=== PATIENT | male | born 1940 | race African-American/Black ===

== ENCOUNTER 2021-04-22 17:06 | Inpatient (IN) | payer MEDICARE, OTHER ==
[~2021-04-22] VITALS: Ht 180.3 cm; Wt 142.4 kg
[~2021-04-22 17:06] MED LIST: ATORVASTATIN CA40 MG PO; FLOMAX0.4 MG PO; FUROSEMIDE40 MG PO; GABAPENTIN600 MG PO; GLIPIZIDE ER10 MG PO; HYDRALAZINE HC100 MG PO; JANUMET 50-1,01 EACH PO; LISINOPRIL20 MG PO; METOLAZONE5 MG PO; METOPROLOL SUC100 MG PO; OMEPRAZOLE20 MG PO
[2021-04-22] MEDS ORDERED: SODIUM CHLORIDE 0.9% 250ML 250 ML IV ONE ×2 (17:45→21:15)
[2021-04-22 17:58] LABS: BASOPHILS # (AUTO) 0.1 (0.0-0.1); BASOPHILS % 0.3 % (0.0-1.0); EOSINOPHILS # (AUTO) 0.1 (0.0-0.4); EOSINOPHILS % 0.5 % (0.0-6.0); LYMPHOCYTES # (AUTO) 3.9 (1.0-3.2); LYMPHOCYTES % 17.3 % (18.0-39.1); MEAN CORPUSCULAR HEMOGLOBIN 31.5 pg (28-32); MEAN CORPUSCULAR HGB CONC 30.2 g/dL (31-35); MEAN CORPUSCULAR VOLUME 104.2 fL (81-99); MONOCYTES # (AUTO) 1.7 (0.2-0.8); MONOCYTES % 7.5 % (4.4-11.3); NEUTROPHILS # (AUTO) 16.4 (2.1-6.9); PLATELET COUNT 191 x10e3/uL (140-360); RED BLOOD COUNT 1.65 x10e6/uL (4.3-5.7); RED CELL DISTRIBUTION WIDTH 15.5 % (11.7-14.4)
[2021-04-22 18:00] LABS: HEMATOCRIT 17.2 % (38.2-49.6); HEMOGLOBIN 5.2 g/dL (14.0-18.0)
[2021-04-22] MEDS ORDERED: SODIUM CHLORIDE 0.9% 250ML 250 ML ONE (18:00)
[2021-04-22 18:11] LABS: INR 1.18; PROTHROMBIN TIME 15.8 seconds (11.9-14.5)
[2021-04-22 18:16] LABS: ALBUMIN 2.2 g/dL (3.5-5.0); ALBUMIN/GLOBULIN RATIO 0.8 (0.8-2.0); ANION GAP 15.7 mmol/L (8-16); CREATININE, SERUM 1.9 mg/dL (0.72-1.25)
[2021-04-22 18:21] LABS: POTASSIUM 5.7 mmol/L (3.5-5.1)
[2021-04-22] MEDS ORDERED: CEFEPIME 1 GM in SODIUM CHLORIDE 0.9% 50ML 50 ML IV SCH (18:30)
[2021-04-22] MEDS ORDERED: ALBUTEROL SULF 0.083% NEB SOLN 3 ML NEB NEB STA (19:40)
[2021-04-22] MEDS ORDERED: IOPAMIDOL 370 MG/ML 200 ML INFUS..BTL INJ ONE (19:45)
[2021-04-22] MEDS ORDERED: SODIUM CHLORIDE 0.9% 100 ML ONE (19:45)
[2021-04-22] MEDS ORDERED: INSULIN REGULAR, HUMAN 100 UNIT/1 ML IV ONE (19:45)
[2021-04-22 20:29] LABS: ANION GAP 14.5 mmol/L (8-16); CALCIUM 7.5 mg/dL (8.4-10.2); CREATININE, SERUM 1.81 mg/dL (0.72-1.25); POTASSIUM 5.5 mmol/L (3.5-5.1)
[2021-04-22] MEDS ORDERED: ALBUTEROL SULFATE HFA 8GM INHALATION AEROSOL INH ONE (20:45)
[2021-04-22 21:02] LABS: BASOPHILS % 0.2 % (0.0-1.0); EOSINOPHILS # (AUTO) 0.1 (0.0-0.4); EOSINOPHILS % 0.5 % (0.0-6.0); LYMPHOCYTES # (AUTO) 2.2 (1.0-3.2); LYMPHOCYTES % 12.4 % (18.0-39.1); MEAN CORPUSCULAR HEMOGLOBIN 30.4 pg (28-32); MEAN CORPUSCULAR HGB CONC 31.4 g/dL (31-35); MEAN CORPUSCULAR VOLUME 96.9 fL (81-99); MONOCYTES # (AUTO) 1.4 (0.2-0.8); MONOCYTES % 7.9 % (4.4-11.3); NEUTROPHILS # (AUTO) 13.9 (2.1-6.9); NEUTROPHILS % 77.3 % (38.7-80.0); PLATELET COUNT 129 x10e3/uL (140-360); RED BLOOD COUNT 2.27 x10e6/uL (4.3-5.7); RED CELL DISTRIBUTION WIDTH 15.5 % (11.7-14.4)
[2021-04-22 21:05] LABS: HEMOGLOBIN 6.9 g/dL (14.0-18.0)
[2021-04-22] MEDS ORDERED: SOD POLYSTYRENE SULFONATE SUSP 15 GM/60 ML BTL PO ONE (23:00)
[2021-04-22] MEDS ORDERED: ONDANSETRON HCL INJ 2MG/ML 2ML 2 MG/ML VIAL IV PRN (23:15)
[2021-04-22] MEDS ORDERED: MELATONIN 3 MG TAB PO PRN (23:15)
[2021-04-22] MEDS ORDERED: HYDRALAZINE HCL 20 MG/ML VIAL IV PRN (23:15)
[2021-04-22] MEDS ORDERED: DEXTROSE 50% SYRINGE 50 ML IV PRN (23:15)
[2021-04-22] MEDS ORDERED: ACETAMINOPHEN 325 MG TAB PEG PRN (23:15)
[2021-04-22 23:17] LABS: FERRITIN 68.49 ng/mL (21.81-274.66)
[2021-04-23] MEDS ORDERED: SODIUM CHLORIDE 0.9% 250ML 250 ML ONE ×2 (01:14→01:51)
[2021-04-23] MEDS ORDERED: OCTREOTIDE ACETATE 1 ML ONE (01:51)
[2021-04-23] MEDS: OCTREOTIDE ACETATE 500 MCG in SODIUM CHLORIDE 0.9% 250ML 249 ML IV SCH ×3 (03:40→20:53)
[2021-04-23 05:51] LABS: BASOPHILS # (AUTO) 0.1 (0.0-0.1); BASOPHILS % 0.5 % (0.0-1.0); EOSINOPHILS # (AUTO) 0.2 (0.0-0.4); EOSINOPHILS % 1.1 % (0.0-6.0); HEMATOCRIT 30.5 % (38.2-49.6); HEMOGLOBIN 9.9 g/dL (14.0-18.0); LYMPHOCYTES # (AUTO) 3.2 (1.0-3.2); LYMPHOCYTES % 15.3 % (18.0-39.1); MEAN CORPUSCULAR HEMOGLOBIN 30.7 pg (28-32); MEAN CORPUSCULAR HGB CONC 32.5 g/dL (31-35); MEAN CORPUSCULAR VOLUME 94.7 fL (81-99); MONOCYTES # (AUTO) 1.9 (0.2-0.8); MONOCYTES % 9.1 % (4.4-11.3); NEUTROPHILS # (AUTO) 15.1 (2.1-6.9); NEUTROPHILS % 72.3 % (38.7-80.0); PLATELET COUNT 119 x10e3/uL (140-360); RED BLOOD COUNT 3.22 x10e6/uL (4.3-5.7)
[2021-04-23 06:01] LABS: ANION GAP 15.8 mmol/L (8-16); CALCIUM 8.1 mg/dL (8.4-10.2); CREATININE, SERUM 1.76 mg/dL (0.72-1.25); POTASSIUM 5.8 mmol/L (3.5-5.1)
[2021-04-23] MEDS: INSULIN REGULAR, HUMAN 100 UNIT/1 ML SQ SCH ×4 (07:30→22:03)
[2021-04-23] MEDS ORDERED: SODIUM CHLORIDE 0.9% 1000ML 1,000 ML IV STA ×3 (07:43→07:45)
[2021-04-23] MEDS ORDERED: SODIUM CHLORIDE 0.9% 250ML 250 ML IV ONE (07:45)
[2021-04-23] MEDS ORDERED: SODIUM CHLORIDE 0.9% 1000ML 1,000 ML ONE ×2 (07:54→08:33)
[2021-04-23] MEDS: MULTIVITAMINS/MINERALS TAB PO SCH (08:28)
[2021-04-23] MEDS: TAMSULOSIN HCL 0.4 MG CAP PO SCH (08:28)
[2021-04-23] MEDS ORDERED: SODIUM CHLORIDE 0.9% 1000ML 1,000 ML IV ONE (08:45)
[2021-04-23] MEDS ORDERED: GABAPENTIN 400 MG CAP PO SCH (09:00)
[2021-04-23] MEDS: IRON SUCROSE 100 MG in SODIUM CHLORIDE 0.9% 100 ML 100 ML IV SCH (09:24)
[2021-04-23] MEDS: CEFEPIME 1 GM in SODIUM CHLORIDE 0.9% 50ML 50 ML IV SCH (09:24)
[2021-04-23 09:34] LABS: INR 1.21; PROTHROMBIN TIME 16.1 seconds (11.9-14.5)
[2021-04-23 09:35] LABS: BASOPHILS # (AUTO) 0.1 (0.0-0.1); BASOPHILS % 0.6 % (0.0-1.0); EOSINOPHILS # (AUTO) 0.3 (0.0-0.4); EOSINOPHILS % 1.7 % (0.0-6.0); HEMATOCRIT 25.8 % (38.2-49.6); HEMOGLOBIN 8.2 g/dL (14.0-18.0); LYMPHOCYTES # (AUTO) 2.7 (1.0-3.2); LYMPHOCYTES % 16.2 % (18.0-39.1); MEAN CORPUSCULAR HEMOGLOBIN 30.5 pg (28-32); MEAN CORPUSCULAR HGB CONC 31.8 g/dL (31-35); MEAN CORPUSCULAR VOLUME 95.9 fL (81-99); MONOCYTES # (AUTO) 1.5 (0.2-0.8); MONOCYTES % 9.2 % (4.4-11.3); NEUTROPHILS # (AUTO) 11.4 (2.1-6.9); NEUTROPHILS % 69.9 % (38.7-80.0); PLATELET COUNT 128 x10e3/uL (140-360); RED BLOOD COUNT 2.69 x10e6/uL (4.3-5.7); RED CELL DISTRIBUTION WIDTH 16.4 % (11.7-14.4)
[2021-04-23] MEDS: METRONIDAZOLE 500MG/NS 100ML 100 ML IV SCH ×2 (11:03→18:00)
[2021-04-23] MEDS: GABAPENTIN 100 MG CAP PO SCH ×2 (15:00→20:54)
[2021-04-23] MEDS ORDERED: SODIUM CHLORIDE 0.9% 1000ML 2,000 ML IV ONE (16:00)
[2021-04-23] MEDS ORDERED: SODIUM CHLORIDE 0.9% 1000ML 2,000 ML ONE (16:11)
[2021-04-23 16:13] LABS: BASOPHILS # (AUTO) 0.1 (0.0-0.1); BASOPHILS % 0.5 % (0.0-1.0); EOSINOPHILS # (AUTO) 0.4 (0.0-0.4); HEMATOCRIT 29.2 % (38.2-49.6); HEMOGLOBIN 9.4 g/dL (14.0-18.0); LYMPHOCYTES # (AUTO) 2.7 (1.0-3.2); LYMPHOCYTES % 13.5 % (18.0-39.1); MEAN CORPUSCULAR HEMOGLOBIN 30.4 pg (28-32); MEAN CORPUSCULAR HGB CONC 32.2 g/dL (31-35); MEAN CORPUSCULAR VOLUME 94.5 fL (81-99); MONOCYTES # (AUTO) 1.7 (0.2-0.8); MONOCYTES % 8.4 % (4.4-11.3); NEUTROPHILS # (AUTO) 14.7 (2.1-6.9); NEUTROPHILS % 73.1 % (38.7-80.0); PLATELET COUNT 142 x10e3/uL (140-360); RED BLOOD COUNT 3.09 x10e6/uL (4.3-5.7); RED CELL DISTRIBUTION WIDTH 16.1 % (11.7-14.4)
[2021-04-23] MEDS: NOREPINEPHRINE 8 MG/D5W 250 ML 250 ML IV SCH (16:28)
[2021-04-23 18:01] VITALS: BP 62/43
[2021-04-23 18:05] VITALS: BP 62/43
[2021-04-23 18:09] VITALS: BP 62/43
[2021-04-23 18:39] LABS: BASOPHILS # (AUTO) 0.2 (0.0-0.1); BASOPHILS % 0.6 % (0.0-1.0); EOSINOPHILS # (AUTO) 0.5 (0.0-0.4); HEMATOCRIT 24.3 % (38.2-49.6); HEMOGLOBIN 7.7 g/dL (14.0-18.0); LYMPHOCYTES # (AUTO) 3.8 (1.0-3.2); LYMPHOCYTES % 14.5 % (18.0-39.1); MEAN CORPUSCULAR HEMOGLOBIN 30.6 pg (28-32); MEAN CORPUSCULAR HGB CONC 31.7 g/dL (31-35); MEAN CORPUSCULAR VOLUME 96.4 fL (81-99); MONOCYTES # (AUTO) 2.5 (0.2-0.8); MONOCYTES % 9.5 % (4.4-11.3); NEUTROPHILS # (AUTO) 18.2 (2.1-6.9); PLATELET COUNT 162 x10e3/uL (140-360); RED BLOOD COUNT 2.52 x10e6/uL (4.3-5.7); RED CELL DISTRIBUTION WIDTH 16.3 % (11.7-14.4)
[2021-04-23 18:55] LABS: ALBUMIN 1.9 g/dL (3.5-5.0); ALBUMIN/GLOBULIN RATIO 0.9 (0.8-2.0); ANION GAP 11.3 mmol/L (8-16); CREATININE, SERUM 1.52 mg/dL (0.72-1.25); POTASSIUM 5.3 mmol/L (3.5-5.1)
[2021-04-23 19:00] VITALS: BP 127/77
[2021-04-23 19:17] LABS: CALCIUM 6.9 mg/dL (8.4-10.2)
[2021-04-23 19:25] LABS: EOSINOPHILS % (MANUAL) 3 % (0-7); LYMPHOCYTES % (MANUAL) 8 % (19-48); METAMYELOCYTES % (MANUAL) 1 % (0-0); MONOCYTES % (MANUAL) 12 % (3.4-9.0); MYELOCYTES % (MANUAL) 1 % (0-0); NEUTROPHILS % (MANUAL) 74 % (40-74); NUCLEATED RED BLOOD CELLS 2
[2021-04-23 19:27] LABS: POLYCHROMASIA MODERATE
[2021-04-23 19:28] LABS: ANISOCYTOSIS SLIGHT; PLATELET ESTIMATE ADEQUATE; PLATELET MORPHOLOGY COMMENT NORMAL; SMUDGE CELLS FEW
[2021-04-23 21:00] VITALS: BP 127/77
[2021-04-23] MEDS ORDERED: INSULIN GLARGINE 100 UNITS/ML VIAL SQ SCH (21:00)
[2021-04-23] MEDS ORDERED: ATORVASTATIN 20 MG TAB PO SCH (21:00)
[2021-04-23] MEDS ORDERED: PHYTONADIONE 10MG/ML 20 MG in SODIUM CHLORIDE 0.9% 100 ML IV ONE (23:45)
[2021-04-24] VITALS (15 sets, daily range): BP systolic 78–159; BP diastolic 49–93
[2021-04-24 00:19] LABS: BASOPHILS # (AUTO) 0.1 (0.0-0.1); BASOPHILS % 0.4 % (0.0-1.0); EOSINOPHILS # (AUTO) 0.3 (0.0-0.4); EOSINOPHILS % 1.2 % (0.0-6.0); HEMATOCRIT 24.3 % (38.2-49.6); HEMOGLOBIN 7.6 g/dL (14.0-18.0); LYMPHOCYTES # (AUTO) 2.5 (1.0-3.2); LYMPHOCYTES % 9.1 % (18.0-39.1); MEAN CORPUSCULAR HEMOGLOBIN 30.6 pg (28-32); MEAN CORPUSCULAR HGB CONC 31.3 g/dL (31-35); MONOCYTES # (AUTO) 2.1 (0.2-0.8); MONOCYTES % 7.7 % (4.4-11.3); NEUTROPHILS # (AUTO) 21.6 (2.1-6.9); NEUTROPHILS % 78.4 % (38.7-80.0); PLATELET COUNT 173 x10e3/uL (140-360); RED BLOOD COUNT 2.48 x10e6/uL (4.3-5.7); RED CELL DISTRIBUTION WIDTH 16.3 % (11.7-14.4)
[2021-04-24] MEDS ORDERED: CALCIUM GLUC 1 G/50 ML NACL 50 ML IV ONE ×3 (04:15→19:58)
[2021-04-24] MEDS: METRONIDAZOLE 500MG/NS 100ML 100 ML IV SCH ×2 (04:51→10:19)
[2021-04-24 05:18] LABS: INR 1.16; PROTHROMBIN TIME 15.8 seconds (11.9-14.5)
[2021-04-24 05:19] LABS: PARTIAL THROMBOPLASTIN TIME 25.9 seconds (23.8-35.5)
[2021-04-24 05:33] LABS: ANION GAP 14.5 mmol/L (8-16); CALCIUM 7.1 mg/dL (8.4-10.2); CREATININE, SERUM 1.73 mg/dL (0.72-1.25); POTASSIUM 5.5 mmol/L (3.5-5.1)
[2021-04-24] MEDS ORDERED: DEXAMETHASONE SOD PHOS 10 MG/1 ML VIAL IV SCH (06:00)
[2021-04-24] MEDS: NOREPINEPHRINE 8 MG/D5W 250 ML 250 ML IV SCH (06:00)
[2021-04-24] MEDS: OCTREOTIDE ACETATE 500 MCG in SODIUM CHLORIDE 0.9% 250ML 249 ML IV SCH ×3 (06:22→21:33)
[2021-04-24] MEDS: INSULIN REGULAR, HUMAN 100 UNIT/1 ML SQ SCH ×2 (07:30→23:56)
[2021-04-24] MEDS ORDERED: SOD POLYSTYRENE SULFONATE SUSP 15 GM/60 ML BTL PR ONE ×2 (08:00→15:00)
[2021-04-24] MEDS ORDERED: PHYTONADIONE 10 MG/ML AMP IV ONE ×2 (08:00)
[2021-04-24] MEDS ORDERED: PHYTONADIONE 10MG/ML 20 MG in SODIUM CHLORIDE 0.9% 50ML 50 ML IV ONE (08:15)
[2021-04-24] MEDS: TAMSULOSIN HCL 0.4 MG CAP PO SCH (08:34)
[2021-04-24] MEDS: MULTIVITAMINS/MINERALS TAB PO SCH (08:34)
[2021-04-24] MEDS: GABAPENTIN 100 MG CAP PO SCH ×2 (08:34→15:00)
[2021-04-24 08:53] LABS: BASOPHILS # (AUTO) 0.1 (0.0-0.1); BASOPHILS % 0.4 % (0.0-1.0); EOSINOPHILS # (AUTO) 0.3 (0.0-0.4); EOSINOPHILS % 0.9 % (0.0-6.0); HEMATOCRIT 23.2 % (38.2-49.6); HEMOGLOBIN 7.4 g/dL (14.0-18.0); LYMPHOCYTES # (AUTO) 1.7 (1.0-3.2); MEAN CORPUSCULAR HEMOGLOBIN 30.5 pg (28-32); MEAN CORPUSCULAR HGB CONC 31.9 g/dL (31-35); MEAN CORPUSCULAR VOLUME 95.5 fL (81-99); MONOCYTES # (AUTO) 1.1 (0.2-0.8); MONOCYTES % 3.9 % (4.4-11.3); NEUTROPHILS # (AUTO) 24.2 (2.1-6.9); NEUTROPHILS % 85.3 % (38.7-80.0); PLATELET COUNT 186 x10e3/uL (140-360); RED BLOOD COUNT 2.43 x10e6/uL (4.3-5.7); RED CELL DISTRIBUTION WIDTH 16.4 % (11.7-14.4)
[2021-04-24] MEDS ORDERED: DEXTROSE 50% SYRINGE 50 ML IV PRN (09:00)
[2021-04-24] MEDS: IRON SUCROSE 100 MG in SODIUM CHLORIDE 0.9% 100 ML 100 ML IV SCH (09:56)
[2021-04-24] MEDS: CEFEPIME 1 GM in SODIUM CHLORIDE 0.9% 50ML 50 ML IV SCH (09:56)
[2021-04-24] MEDS: Pantoprazole IV 40 MG in SODIUM CHLORIDE 0.9% 50ML 50 ML IV SCH ×3 (09:57→23:53)
[2021-04-24] MEDS ORDERED: HYDROCODONE/APAP 7.5MG-325MG 1 EA TAB PO PRN (10:00)
[2021-04-24] MEDS ORDERED: Morphine 4mg Syringe 4 MG/ML INJ IV PRN (10:00)
[2021-04-24] MEDS ORDERED: SODIUM CHLORIDE 0.9% 250ML 250 ML ONE (11:02)
[2021-04-24] MEDS ORDERED: INSULIN LISPRO 100 UNIT/1 ML 3ML VIAL SQ SCH (12:00)
[2021-04-24] MEDS ORDERED: SUCCINYLCHOLINE CHLORIDE 20 MG/ML 10ML VIAL ONE (12:14)
[2021-04-24] MEDS ORDERED: METOCLOPRAMIDE HCL 10 MG/2ML VIAL ONE (12:14)
[2021-04-24] MEDS ORDERED: ROCURONIUM BROMIDE 10 MG/ML 5ML VIAL IV ONE (12:14)
[2021-04-24] MEDS ORDERED: GLUCAGON FOR INJ 1 MG VIAL ONE (12:14)
[2021-04-24] MEDS ORDERED: DEXAMETHASONE SOD PHOS INJ 4 MG/ML SDV ONE (12:14)
[2021-04-24] MEDS ORDERED: LIDOCAINE HCL 2% LOCAL INJ 5 ML SDV VIAL INJ ONE (12:14)
[2021-04-24] MEDS ORDERED: PHENYLEPHRINE HCL 1% 10 MG/ML VIAL ONE (12:14)
[2021-04-24] MEDS ORDERED: PROPOFOL IV EMULSION 10 MG/ML 20 ML VIAL ONE (12:14)
[2021-04-24] MEDS ORDERED: SEVOFLURANE INHAL SOLN 250 ML PEN BTL ONE (12:14)
[2021-04-24] MEDS ORDERED: POVIDONE IODINE 0.05% 0.05 % ML PO ONE (12:14)
[2021-04-24] MEDS ORDERED: EPHEDRINE SULFATE INJ 50 MG/ML VIAL ONE (12:14)
[2021-04-24] MEDS ORDERED: FUROSEMIDE INJ 10 MG/ML 4 ML VIAL IV ONE (16:30)
[2021-04-24] MEDS ORDERED: EPINEPHRINE HCL 1:1000 1ML 1 MG/ML AMP ONE (17:11)
[2021-04-24] MEDS ORDERED: SODIUM CHLORIDE 0.9% 250ML 250 ML IV ONE ×2 (17:30)
[2021-04-24] MEDS ORDERED: HEPARIN SOD/SOD CHLORIDE 1,000 ML ONE (19:59)
[2021-04-24] MEDS: SODIUM CHLORIDE 0.9% 250ML IRRIG IR SCH (21:00)
[2021-04-24] MEDS ORDERED: HYDROMORPHONE 1MG/1ML INJ IV PRN (21:00)
[2021-04-24] MEDS ORDERED: CALCIUM CARBONATE 500 MG CHEWABLE TABS PO SCH (21:00)
[2021-04-24] MEDS: PROPOFOL IV EMULSION 10MG/ML 100 ML IV SCH (22:47)
[2021-04-24] MEDS: FENTANYL 2000MCG/NS 250 250 ML IV SCH (22:47)
[2021-04-24 23:01] LABS: BASOPHILS # (AUTO) 0.1 (0.0-0.1); BASOPHILS % 0.3 % (0.0-1.0); EOSINOPHILS % 0.1 % (0.0-6.0); LYMPHOCYTES # (AUTO) 1.2 (1.0-3.2); LYMPHOCYTES % 5.8 % (18.0-39.1); MEAN CORPUSCULAR HEMOGLOBIN 31.1 pg (28-32); MEAN CORPUSCULAR HGB CONC 33.2 g/dL (31-35); MEAN CORPUSCULAR VOLUME 93.9 fL (81-99); MONOCYTES # (AUTO) 1.3 (0.2-0.8); MONOCYTES % 6.2 % (4.4-11.3); NEUTROPHILS # (AUTO) 18.6 (2.1-6.9); NEUTROPHILS % 86.4 % (38.7-80.0); PLATELET COUNT 115 x10e3/uL (140-360); RED BLOOD COUNT 2.12 x10e6/uL (4.3-5.7); RED CELL DISTRIBUTION WIDTH 15.3 % (11.7-14.4)
[2021-04-24 23:06] LABS: HEMATOCRIT 19.9 % (38.2-49.6); HEMOGLOBIN 6.6 g/dL (14.0-18.0)
[2021-04-24 23:14] LABS: ALBUMIN 2.4 g/dL (3.5-5.0); ANION GAP 14.2 mmol/L (8-16); CREATININE, SERUM 1.8 mg/dL (0.72-1.25); POTASSIUM 5.2 mmol/L (3.5-5.1)
[2021-04-24 23:27] LABS: CALCIUM 6.7 mg/dL (8.4-10.2)
[2021-04-24] MEDS: SODIUM CHLORIDE 0.9% 1000ML 1,000 ML IV SCH (23:53)
[2021-04-24 23:55] LABS: ABG HCO3 24 mmol/L (22-26); ABG PCO2 42 mmHg (35-45); ABG PH 7.37 (7.35-7.45); ABG PO2 349 mmHg (80-105)
[2021-04-24 23:56] LABS: ABG TCO2 25
[2021-04-25] VITALS (27 sets, daily range): BP systolic 106–258; BP diastolic 48–79
[2021-04-25] MEDS: Pantoprazole IV 40 MG in SODIUM CHLORIDE 0.9% 50ML 50 ML IV SCH ×5 (00:30→20:26)
[2021-04-25] MEDS: SODIUM CHLORIDE 0.9% 250ML IRRIG IR SCH ×6 (01:00→20:26)
[2021-04-25] MEDS: PROPOFOL IV EMULSION 10MG/ML 100 ML IV SCH ×5 (01:01→19:32)
[2021-04-25] MEDS ORDERED: SODIUM CHLORIDE 0.9% 250ML 250 ML ONE (01:30)
[2021-04-25] MEDS: OCTREOTIDE ACETATE 500 MCG in SODIUM CHLORIDE 0.9% 250ML 249 ML IV SCH ×6 (02:33→20:46)
[2021-04-25 05:51] LABS: BASOPHILS # (AUTO) 0.1 (0.0-0.1); BASOPHILS % 0.2 % (0.0-1.0); HEMOGLOBIN 8.2 g/dL (14.0-18.0); LYMPHOCYTES # (AUTO) 1.3 (1.0-3.2); LYMPHOCYTES % 5.8 % (18.0-39.1); MEAN CORPUSCULAR HEMOGLOBIN 30.4 pg (28-32); MEAN CORPUSCULAR HGB CONC 32.8 g/dL (31-35); MEAN CORPUSCULAR VOLUME 92.6 fL (81-99); MONOCYTES # (AUTO) 1.2 (0.2-0.8); MONOCYTES % 5.3 % (4.4-11.3); NEUTROPHILS # (AUTO) 19.8 (2.1-6.9); NEUTROPHILS % 87.6 % (38.7-80.0); PLATELET COUNT 124 x10e3/uL (140-360)
[2021-04-25 06:18] LABS: ALBUMIN 2.4 g/dL (3.5-5.0); ALBUMIN/GLOBULIN RATIO 0.9 (0.8-2.0); ANION GAP 15.6 mmol/L (8-16); CALCIUM 7.3 mg/dL (8.4-10.2); CREATININE, SERUM 1.88 mg/dL (0.72-1.25); POTASSIUM 4.6 mmol/L (3.5-5.1)
[2021-04-25] MEDS: FENTANYL 2000MCG/NS 250 250 ML IV SCH (06:19)
[2021-04-25 06:21] LABS: INR 1.07; PROTHROMBIN TIME 14.9 seconds (11.9-14.5)
[2021-04-25 06:22] LABS: PARTIAL THROMBOPLASTIN TIME 27.8 seconds (23.8-35.5)
[2021-04-25] MEDS: INSULIN REGULAR, HUMAN 100 UNIT/1 ML SQ SCH ×4 (07:39→21:02)
[2021-04-25] MEDS: SODIUM CHLORIDE 0.9% 1000ML 1,000 ML IV SCH (07:43)
[2021-04-25] MEDS: CEFEPIME 1 GM in SODIUM CHLORIDE 0.9% 50ML 50 ML IV SCH (07:44)
[2021-04-25] MEDS ORDERED: LORAZEPAM INJ 2 MG/ML VIAL IV PRN (09:15)
[2021-04-25] MEDS: IRON SUCROSE 100 MG in SODIUM CHLORIDE 0.9% 100 ML 100 ML IV SCH (09:20)
[2021-04-25] MEDS ORDERED: FUROSEMIDE INJ 10 MG/ML 4 ML VIAL IV ONE (10:00)
[2021-04-25 10:26] LABS: INR 1.05; PROTHROMBIN TIME 14.7 seconds (11.9-14.5)
[2021-04-25 10:27] LABS: PARTIAL THROMBOPLASTIN TIME 27.5 seconds (23.8-35.5)
[2021-04-25] MEDS ORDERED: CALCIUM GLUC 1 G/50 ML NACL 50 ML IV ONE ×2 (12:00→12:30)
[2021-04-25] MEDS: NOREPINEPHRINE 8 MG/D5W 250 ML 250 ML IV SCH ×2 (13:05→23:51)
[2021-04-25 13:21] LABS: BASOPHILS % 0.3 % (0.0-1.0); HEMATOCRIT 26.1 % (38.2-49.6); HEMOGLOBIN 8.5 g/dL (14.0-18.0); LYMPHOCYTES # (AUTO) 1.5 (1.0-3.2); LYMPHOCYTES % 5.8 % (18.0-39.1); MEAN CORPUSCULAR HEMOGLOBIN 30.6 pg (28-32); MEAN CORPUSCULAR HGB CONC 32.6 g/dL (31-35); MEAN CORPUSCULAR VOLUME 93.9 fL (81-99); NEUTROPHILS # (AUTO) 21.3 (2.1-6.9); PLATELET COUNT 148 x10e3/uL (140-360); RED BLOOD COUNT 2.78 x10e6/uL (4.3-5.7); RED CELL DISTRIBUTION WIDTH 15.6 % (11.7-14.4)
[2021-04-25 13:22] LABS: BASOPHILS # (AUTO) 0.1 (0.0-0.1)
[2021-04-25] MEDS: FUROSEMIDE INJ 10 MG/ML 4 ML VIAL IV SCH (20:26)
[2021-04-25] MEDS ORDERED: INSULIN GLARGINE 100 UNITS/ML VIAL SQ SCH (21:00)
[2021-04-26] VITALS (30 sets, daily range): BP systolic 105–132; BP diastolic 48–54
[2021-04-26] MEDS: PROPOFOL IV EMULSION 10MG/ML 100 ML IV SCH ×2 (00:22→06:09)
[2021-04-26] MEDS: SODIUM CHLORIDE 0.9% 250ML IRRIG IR SCH ×6 (01:34→21:37)
[2021-04-26] MEDS: Pantoprazole IV 40 MG in SODIUM CHLORIDE 0.9% 50ML 50 ML IV SCH ×5 (01:34→20:43)
[2021-04-26] MEDS: OCTREOTIDE ACETATE 500 MCG in SODIUM CHLORIDE 0.9% 250ML 249 ML IV SCH ×4 (03:37→18:33)
[2021-04-26 05:11] LABS: BASOPHILS # (AUTO) 0.1 (0.0-0.1); BASOPHILS % 0.2 % (0.0-1.0); EOSINOPHILS # (AUTO) 0.2 (0.0-0.4); EOSINOPHILS % 0.9 % (0.0-6.0); HEMATOCRIT 25.3 % (38.2-49.6); LYMPHOCYTES # (AUTO) 1.9 (1.0-3.2); LYMPHOCYTES % 8.8 % (18.0-39.1); MEAN CORPUSCULAR HEMOGLOBIN 30.5 pg (28-32); MEAN CORPUSCULAR HGB CONC 31.6 g/dL (31-35); MEAN CORPUSCULAR VOLUME 96.6 fL (81-99); MONOCYTES # (AUTO) 1.5 (0.2-0.8); MONOCYTES % 7.1 % (4.4-11.3); NEUTROPHILS # (AUTO) 17.5 (2.1-6.9); NEUTROPHILS % 81.5 % (38.7-80.0); PLATELET COUNT 155 x10e3/uL (140-360); RED BLOOD COUNT 2.62 x10e6/uL (4.3-5.7); RED CELL DISTRIBUTION WIDTH 16.9 % (11.7-14.4)
[2021-04-26 05:24] LABS: ALBUMIN 2.2 g/dL (3.5-5.0); ALBUMIN/GLOBULIN RATIO 0.8 (0.8-2.0); ANION GAP 16.4 mmol/L (8-16); CALCIUM 7.2 mg/dL (8.4-10.2); CREATININE, SERUM 2.17 mg/dL (0.72-1.25); POTASSIUM 4.4 mmol/L (3.5-5.1)
[2021-04-26] MEDS: INSULIN REGULAR, HUMAN 100 UNIT/1 ML SQ SCH ×3 (06:18→18:00)
[2021-04-26] MEDS: IRON SUCROSE 100 MG in SODIUM CHLORIDE 0.9% 100 ML 100 ML IV SCH (09:00)
[2021-04-26] MEDS: FUROSEMIDE INJ 10 MG/ML 4 ML VIAL IV SCH ×2 (09:00→20:43)
[2021-04-26] MEDS: CEFEPIME 1 GM in SODIUM CHLORIDE 0.9% 50ML 50 ML IV SCH (09:00)
[2021-04-26] MEDS ORDERED: Vancomycin IV 1 GM in SODIUM CHLORIDE 0.9% 250ML 250 ML IV SCH (09:15)
[2021-04-26 09:59] LABS: ABG PCO2 49 mmHg (35-45); ABG PH 7.28 (7.35-7.45); ABG PO2 123 mmHg (80-105)
[2021-04-26 10:00] LABS: ABG HCO3 23 mmol/L (22-26); ABG TCO2 24
[2021-04-26 10:10] LABS: EOSINOPHILS % (MANUAL) 2 % (0-7); LYMPHOCYTES % (MANUAL) 4 % (19-48); METAMYELOCYTES % (MANUAL) 1 % (0-0); MICROCYTOSIS SLIG; MONOCYTES % (MANUAL) 1 % (3.4-9.0); NEUTROPHILS % (MANUAL) 92 % (40-74); NUCLEATED RED BLOOD CELLS 30; PLATELET ESTIMATE SLIGHTLY DECREASED; PLATELET MORPHOLOGY COMMENT NORMAL; RBC MORPHOLOGY COMMENT ABNORMAL
[2021-04-26 10:11] LABS: ANISOCYTOSIS MODE; POIKILOCYTOSIS MODERATE; POLYCHROMASIA MODERATE
[2021-04-26 10:12] LABS: SMUDGE CELLS FEW
[2021-04-26] MEDS: NOREPINEPHRINE 8 MG/D5W 250 ML 250 ML IV SCH (12:13)
[2021-04-26] MEDS ORDERED: CALCIUM CHLORIDE 13.6 MEQ in SODIUM CHLORIDE 0.9% 100 ML 100 ML IV ONE (14:30)
[2021-04-26] MEDS: INSULIN GLARGINE 100 UNITS/ML VIAL SQ SCH (20:49)
[2021-04-27] VITALS (61 sets, daily range): BP systolic 82–147; BP diastolic 30–69
[2021-04-27] MEDS: PROPOFOL IV EMULSION 10MG/ML 100 ML IV SCH (00:28)
[2021-04-27] MEDS: OCTREOTIDE ACETATE 500 MCG in SODIUM CHLORIDE 0.9% 250ML 249 ML IV SCH ×5 (00:30→19:41)
[2021-04-27] MEDS: SODIUM CHLORIDE 0.9% 250ML IRRIG IR SCH ×6 (00:57→21:22)
[2021-04-27] MEDS: NOREPINEPHRINE 8 MG/D5W 250 ML 250 ML IV SCH (01:42)
[2021-04-27] MEDS: Pantoprazole IV 40 MG in SODIUM CHLORIDE 0.9% 50ML 50 ML IV SCH ×5 (02:41→22:48)
[2021-04-27] MEDS: INSULIN REGULAR, HUMAN 100 UNIT/1 ML SQ SCH ×4 (05:10→18:22)
[2021-04-27 05:50] LABS: BASOPHILS # (AUTO) 0.1 (0.0-0.1); BASOPHILS % 0.3 % (0.0-1.0); EOSINOPHILS # (AUTO) 0.1 (0.0-0.4); EOSINOPHILS % 0.5 % (0.0-6.0); HEMATOCRIT 22.8 % (38.2-49.6); HEMOGLOBIN 7.4 g/dL (14.0-18.0); LYMPHOCYTES # (AUTO) 1.3 (1.0-3.2); LYMPHOCYTES % 6.6 % (18.0-39.1); MEAN CORPUSCULAR HGB CONC 32.5 g/dL (31-35); MEAN CORPUSCULAR VOLUME 95.4 fL (81-99); MONOCYTES # (AUTO) 1.1 (0.2-0.8); MONOCYTES % 5.6 % (4.4-11.3); NEUTROPHILS # (AUTO) 17.2 (2.1-6.9); NEUTROPHILS % 85.7 % (38.7-80.0); PLATELET COUNT 154 x10e3/uL (140-360); RED BLOOD COUNT 2.39 x10e6/uL (4.3-5.7)
[2021-04-27 05:54] LABS: COLOR,URINE YELLOW (YELLOW)
[2021-04-27 05:55] LABS: CLARITY,URINE SL CLOUDY (CLEAR); KETONES,URINE NEGATIVE (NEGATIVE); LEUKOCYTE ESTERASE ,URINE MODERATE (NEGATIVE); NITRITE,URINE NEGATIVE (NEGATIVE); PROTEIN,URINE DIPSTICK NEGATIVE (NEGATIVE); URINE UROBILINOGEN 0.2 mg/dL (0.2 - 1)
[2021-04-27 06:17] LABS: ALBUMIN 1.8 g/dL (3.5-5.0); ALBUMIN/GLOBULIN RATIO 0.6 (0.8-2.0); ANION GAP 12.5 mmol/L (8-16); CALCIUM 7.3 mg/dL (8.4-10.2); CREATININE, SERUM 2.04 mg/dL (0.72-1.25); POTASSIUM 3.5 mmol/L (3.5-5.1)
[2021-04-27 06:18] LABS: RBC,URINE 21-50 /HPF (0-5); WBC,URINE (MAN) >50 /HPF (0-5)
[2021-04-27 06:19] LABS: BACTERIA,URINE MODERATE /HPF; EPITHELIAL CELLS,URINE MODERATE /LPF; YEAST,URINE MANY
[2021-04-27 07:05] LABS: LYMPHOCYTES % (MANUAL) 4 % (19-48); MONOCYTES % (MANUAL) 2 % (3.4-9.0); NEUTROPHILS % (MANUAL) 94 % (40-74); NUCLEATED RED BLOOD CELLS 13; PLATELET ESTIMATE ADEQUATE; PLATELET MORPHOLOGY COMMENT FEW GIANT; RBC MORPHOLOGY COMMENT NORMAL
[2021-04-27] MEDS: CEFEPIME 1 GM in SODIUM CHLORIDE 0.9% 50ML 50 ML IV SCH (09:01)
[2021-04-27] MEDS: FUROSEMIDE INJ 10 MG/ML 4 ML VIAL IV SCH (09:01)
[2021-04-27] MEDS: IRON SUCROSE 100 MG in SODIUM CHLORIDE 0.9% 100 ML 100 ML IV SCH (09:31)
[2021-04-27] MEDS: CHLOROTHIAZIDE SODIUM 500 MG VIAL IV SCH (10:24)
[2021-04-27] MEDS ORDERED: ALBUTEROL SULF 0.083% NEB SOLN 3 ML NEB NEB PRN (11:30)
[2021-04-27 13:40] LABS: ABG HCO3 23 mmol/L (22-26); ABG PCO2 42 mmHg (35-45); ABG PH 7.35 (7.35-7.45); ABG PO2 105 mmHg (80-105); ABG TCO2 24
[2021-04-27] MEDS: INSULIN GLARGINE 100 UNITS/ML VIAL SQ SCH (21:48)
[2021-04-28] VITALS (25 sets, daily range): BP systolic 94–145; BP diastolic 41–81
[2021-04-28] MEDS: OCTREOTIDE ACETATE 500 MCG in SODIUM CHLORIDE 0.9% 250ML 249 ML IV SCH ×5 (00:35→20:50)
[2021-04-28] MEDS: INSULIN REGULAR, HUMAN 100 UNIT/1 ML SQ SCH ×5 (01:21→23:48)
[2021-04-28] MEDS: SODIUM CHLORIDE 0.9% 250ML IRRIG IR SCH ×6 (01:24→20:50)
[2021-04-28] MEDS: Pantoprazole IV 40 MG in SODIUM CHLORIDE 0.9% 50ML 50 ML IV SCH ×5 (03:48→23:45)
[2021-04-28 05:23] LABS: BASOPHILS % 0.2 % (0.0-1.0); EOSINOPHILS % 0.1 % (0.0-6.0); HEMATOCRIT 24.1 % (38.2-49.6); HEMOGLOBIN 7.4 g/dL (14.0-18.0); LYMPHOCYTES # (AUTO) 1.1 (1.0-3.2); LYMPHOCYTES % 4.6 % (18.0-39.1); MEAN CORPUSCULAR HEMOGLOBIN 30.1 pg (28-32); MEAN CORPUSCULAR HGB CONC 30.7 g/dL (31-35); MONOCYTES # (AUTO) 1.6 (0.2-0.8); MONOCYTES % 6.6 % (4.4-11.3); NEUTROPHILS # (AUTO) 21.3 (2.1-6.9); NEUTROPHILS % 87.7 % (38.7-80.0); PLATELET COUNT 204 x10e3/uL (140-360); RED BLOOD COUNT 2.46 x10e6/uL (4.3-5.7); RED CELL DISTRIBUTION WIDTH 16.9 % (11.7-14.4)
[2021-04-28 05:36] LABS: ALBUMIN 1.7 g/dL (3.5-5.0); ALBUMIN/GLOBULIN RATIO 0.5 (0.8-2.0); ANION GAP 13.2 mmol/L (8-16); CALCIUM 7.6 mg/dL (8.4-10.2); CREATININE, SERUM 2.55 mg/dL (0.72-1.25); POTASSIUM 4.2 mmol/L (3.5-5.1)
[2021-04-28] MEDS ORDERED: CALCIUM GLUC 1 G/50 ML NACL 50 ML IV ONE (08:00)
[2021-04-28 08:15] LABS: BAND NEUTROPHILS % (MANUAL) 2 %; LYMPHOCYTES % (MANUAL) 2 % (19-48); MONOCYTES % (MANUAL) 3 % (3.4-9.0); NEUTROPHILS % (MANUAL) 92 % (40-74); NUCLEATED RED BLOOD CELLS 1; PLATELET ESTIMATE ADEQUATE; PLATELET MORPHOLOGY COMMENT NORMAL; RBC MORPHOLOGY COMMENT NORMAL
[2021-04-28] MEDS: CEFEPIME 1 GM in SODIUM CHLORIDE 0.9% 50ML 50 ML IV SCH (08:29)
[2021-04-28] MEDS: IRON SUCROSE 100 MG in SODIUM CHLORIDE 0.9% 100 ML 100 ML IV SCH (08:30)
[2021-04-28] MEDS ORDERED: FUROSEMIDE INJ 10 MG/ML 4 ML VIAL IV SCH (09:00)
[2021-04-28] MEDS: CHLOROTHIAZIDE SODIUM 500 MG VIAL IV SCH ×2 (09:00→09:11)
[2021-04-28] MEDS: NOREPINEPHRINE 8 MG/D5W 250 ML 250 ML IV SCH (13:32)
[2021-04-28 14:35] LABS: PHOSPHORUS 4.9 MG/DL (2.3-4.7)
[2021-04-28] MEDS: FUROSEMIDE INJ 100 MG in SODIUM CHLORIDE 0.9% 90 ML IV SCH (16:41)
[2021-04-28] MEDS ORDERED: CENTRAL TPN FORMULA 1 BAG IV SCH (20:00)
[2021-04-28] MEDS ORDERED: INSULIN GLARGINE 100 UNITS/ML VIAL SQ SCH (21:00)
[2021-04-29] VITALS (43 sets, daily range): BP systolic 41–218; BP diastolic 20–113
[2021-04-29] MEDS: SODIUM CHLORIDE 0.9% 250ML IRRIG IR SCH ×5 (01:25→17:00)
[2021-04-29] MEDS: OCTREOTIDE ACETATE 500 MCG in SODIUM CHLORIDE 0.9% 250ML 249 ML IV SCH ×2 (01:45→06:33)
[2021-04-29] MEDS ORDERED: VASOPRESSIN INJ 20 UNIT/ML VIAL ONE (02:23)
[2021-04-29] MEDS ORDERED: DEXTROSE 5% 50ML 50 ML IV ONE (02:23)
[2021-04-29] MEDS ORDERED: NOREPINEPHRINE 8 MG/D5W 250 ML 250 ML ONE ×2 (02:25→04:08)
[2021-04-29] MEDS ORDERED: DEXMEDETOMIDINE 400MCG/NS100ML 100 ML IV PRN (02:30)
[2021-04-29] MEDS ORDERED: LORAZEPAM INJ 2 MG/ML VIAL IV PRN (02:30)
[2021-04-29] MEDS ORDERED: PROPOFOL IV EMULSION 10MG/ML 100 ML IV PRN (02:30)
[2021-04-29] MEDS ORDERED: ALBUMIN 25% 25GM 100ML 0.25 GM/ML BTL IV ONE ×2 (02:30→11:45)
[2021-04-29] MEDS ORDERED: VASOPRESSIN 60 UNIT in DEXTROSE 5% 50ML 57 ML IV PRN (02:45)
[2021-04-29 02:55] LABS: BASOPHILS % 0.2 % (0.0-1.0); EOSINOPHILS # (AUTO) 0.1 (0.0-0.4); EOSINOPHILS % 0.2 % (0.0-6.0); HEMATOCRIT 24.3 % (38.2-49.6); HEMOGLOBIN 7.2 g/dL (14.0-18.0); LYMPHOCYTES # (AUTO) 2.1 (1.0-3.2); LYMPHOCYTES % 9.3 % (18.0-39.1); MEAN CORPUSCULAR HEMOGLOBIN 29.9 pg (28-32); MEAN CORPUSCULAR HGB CONC 29.6 g/dL (31-35); MEAN CORPUSCULAR VOLUME 100.8 fL (81-99); MONOCYTES # (AUTO) 1.1 (0.2-0.8); MONOCYTES % 4.8 % (4.4-11.3); NEUTROPHILS # (AUTO) 19.2 (2.1-6.9); NEUTROPHILS % 83.8 % (38.7-80.0); PLATELET COUNT 235 x10e3/uL (140-360); RED BLOOD COUNT 2.41 x10e6/uL (4.3-5.7); RED CELL DISTRIBUTION WIDTH 16.3 % (11.7-14.4)
[2021-04-29 02:59] LABS: ABG HCO3 23 mmol/L (22-26); ABG PCO2 85 mmHg (35-45); ABG PH 7.05 (7.35-7.45); ABG PO2 49 mmHg (80-105)
[2021-04-29 03:00] LABS: ABG TCO2 26
[2021-04-29 03:13] LABS: ALBUMIN 1.5 g/dL (3.5-5.0); ALBUMIN/GLOBULIN RATIO 0.4 (0.8-2.0); ANION GAP 16.5 mmol/L (8-16); CREATININE, SERUM 2.59 mg/dL (0.72-1.25); POTASSIUM 4.5 mmol/L (3.5-5.1)
[2021-04-29] MEDS: FUROSEMIDE INJ 100 MG in SODIUM CHLORIDE 0.9% 90 ML IV SCH (04:02)
[2021-04-29 06:19] LABS: BASOPHILS # (AUTO) 0.1 (0.0-0.1); BASOPHILS % 0.3 % (0.0-1.0); EOSINOPHILS % 0.1 % (0.0-6.0); HEMATOCRIT 22.6 % (38.2-49.6); LYMPHOCYTES # (AUTO) 0.4 (1.0-3.2); LYMPHOCYTES % 2.5 % (18.0-39.1); MEAN CORPUSCULAR HEMOGLOBIN 30.2 pg (28-32); MEAN CORPUSCULAR VOLUME 97.4 fL (81-99); MONOCYTES # (AUTO) 0.9 (0.2-0.8); MONOCYTES % 5.3 % (4.4-11.3); NEUTROPHILS # (AUTO) 16.2 (2.1-6.9); NEUTROPHILS % 90.5 % (38.7-80.0); PLATELET COUNT 217 x10e3/uL (140-360); RED BLOOD COUNT 2.32 x10e6/uL (4.3-5.7); RED CELL DISTRIBUTION WIDTH 16.1 % (11.7-14.4)
[2021-04-29 06:33] LABS: ALBUMIN/GLOBULIN RATIO 0.6 (0.8-2.0); CALCIUM 7.1 mg/dL (8.4-10.2); CREATININE, SERUM 2.47 mg/dL (0.72-1.25)
[2021-04-29] MEDS: Pantoprazole IV 40 MG in SODIUM CHLORIDE 0.9% 50ML 50 ML IV SCH ×3 (07:26→14:50)
[2021-04-29] MEDS: INSULIN REGULAR, HUMAN 100 UNIT/1 ML SQ SCH (07:41)
[2021-04-29 08:26] LABS: LYMPHOCYTES % (MANUAL) 4 % (19-48); MONOCYTES % (MANUAL) 4 % (3.4-9.0); NEUTROPHILS % (MANUAL) 92 % (40-74); NUCLEATED RED BLOOD CELLS 5
[2021-04-29 08:27] LABS: ANISOCYTOSIS SLIGHT; PLATELET ESTIMATE ADEQUATE; PLATELET MORPHOLOGY COMMENT NORMAL; POLYCHROMASIA FEW; RBC MORPHOLOGY COMMENT NORMAL
[2021-04-29 08:57] LABS: ABG PCO2 44 mmHg (35-45); ABG PH 7.34 (7.35-7.45); ABG PO2 242 mmHg (80-105)
[2021-04-29 08:58] LABS: ABG HCO3 24 mmol/L (22-26); ABG TCO2 25
[2021-04-29] MEDS ORDERED: MIDAZOLAM HCL 2 MG/2 ML VIAL ONE (09:13)
[2021-04-29] MEDS ORDERED: MIDAZOLAM HCL 2 MG/2 ML VIAL IV STA (09:30)
[2021-04-29] MEDS ORDERED: INSULIN REGULAR, HUMAN 3ML VL 100 UNIT in SODIUM CHLORIDE 0.9% 99 ML IV SCH ×2 (09:45)
[2021-04-29] MEDS ORDERED: DEXTROSE 50% SYRINGE 50 ML IV PRN (09:45)
[2021-04-29] MEDS ORDERED: SODIUM CHLORIDE 0.9% 250ML 250 ML IV ONE ×2 (09:45→14:45)
[2021-04-29] MEDS: CEFEPIME 1 GM in SODIUM CHLORIDE 0.9% 50ML 50 ML IV SCH (10:22)
[2021-04-29 10:31] LABS: INR 1.33; PROTHROMBIN TIME 17.6 seconds (11.9-14.5)
[2021-04-29 10:32] LABS: PARTIAL THROMBOPLASTIN TIME 34.8 seconds (23.8-35.5)
[2021-04-29] MEDS: NOREPINEPHRINE 8 MG/D5W 250 ML 250 ML IV SCH (10:49)
[2021-04-29] MEDS ORDERED: ALBUMIN 25% 25GM 100ML 200 ML ONE (11:51)
[2021-04-29] MEDS ORDERED: SODIUM BICARBONATE 8.4% SYRING 100 ML ONE (11:51)
[2021-04-29] MEDS ORDERED: ALBUMIN 25% 12.5GM 0.25 GM/ML BTL IV PRN (12:00)
[2021-04-29] MEDS ORDERED: SODIUM CHLORIDE 0.9% 1000ML 2,000 ML IV PRN (12:00)
[2021-04-29] MEDS ORDERED: PHENYLEPHRINE 10MG/ML VIAL 40 MG in DEXTROSE 5% 250ML 246 ML IV SCH (12:00)
[2021-04-29] MEDS ORDERED: HEPARIN SOD (PORCINE) 1000 UNIT/ML SDV IV PRN (12:00)
[2021-04-29] MEDS ORDERED: MANNITOL 25% 12.5GM/50 ML VIAL IV PRN (12:00)
[2021-04-29] MEDS ORDERED: SODIUM CHLORIDE 0.9% 250ML 500 ML IV PRN (12:00)
[2021-04-29] MEDS ORDERED: SUCCINYLCHOLINE CHLORIDE 20 MG/ML 10ML VIAL ONE (12:09)
[2021-04-29] MEDS ORDERED: SODIUM BICARBONATE 8.4% INJ 50 ML SYR IV ONE (12:15)
[2021-04-29] MEDS ORDERED: CALCIUM CHLORIDE 13.6 MEQ in SODIUM CHLORIDE 0.9% 100 ML 100 ML IV ONE (16:15)
== END 2021-04-29 20:01 | disposition expired | DRG 853 ==
LOC: ER 17:16 → ERHOLD 18:28 → IMCU 04-23 17:30 → ICU 04-24 21:24
PROVIDERS: ADMIT Internal Medicine; ATTEND Internal Medicine
PROC: 30233N1 Transfusion of Nonautologous Red Blood Cells into Peripheral Vein, Percutaneous Approach (ICD-10-PCS; 2021-04-22)
PROC: 0W3P0ZZ Control Bleeding in Gastrointestinal Tract, Open Approach (ICD-10-PCS; 2021-04-24)
PROC: 0DH60UZ Insertion of Feeding Device into Stomach, Open Approach (ICD-10-PCS; 2021-04-24)
PROC: 30233K1 Transfusion of Nonautologous Frozen Plasma into Peripheral Vein, Percutaneous Approach (ICD-10-PCS; 2021-04-24)
PROC: 3E0333Z Introduction of Anti-inflammatory into Peripheral Vein, Percutaneous Approach (ICD-10-PCS; 2021-04-24)
PROC: 5A1945Z Respiratory Ventilation, 24-96 Consecutive Hours (ICD-10-PCS; 2021-04-24)
PROC: 0BH17EZ Insertion of Endotracheal Airway into Trachea, Via Natural or Artificial Opening (ICD-10-PCS; 2021-04-24)
PROC: 3E0G8GC Introduction of Other Therapeutic Substance into Upper GI, Via Natural or Artificial Opening Endoscopic (ICD-10-PCS; 2021-04-24)
PROC: 0W3P8ZZ Control Bleeding in Gastrointestinal Tract, Via Natural or Artificial Opening Endoscopic (ICD-10-PCS; 2021-04-24)
PROC: 30233L1 Transfusion of Nonautologous Fresh Plasma into Peripheral Vein, Percutaneous Approach (ICD-10-PCS; principal; 2021-04-24 07:30)
PROC: 0DB60ZZ Excision of Stomach, Open Approach (ICD-10-PCS; 2021-04-24 07:30)
PROC: 02HV33Z Insertion of Infusion Device into Superior Vena Cava, Percutaneous Approach (ICD-10-PCS; 2021-04-28)
PROC: 3E0436Z Introduction of Nutritional Substance into Central Vein, Percutaneous Approach (ICD-10-PCS; 2021-04-28)
PROC: 02HV33Z Insertion of Infusion Device into Superior Vena Cava, Percutaneous Approach (ICD-10-PCS; 2021-04-28)
PROC: 3E043XZ Introduction of Vasopressor into Central Vein, Percutaneous Approach (ICD-10-PCS; 2021-04-29)
PROC: 5A1935Z Respiratory Ventilation, Less than 24 Consecutive Hours (ICD-10-PCS; 2021-04-29)
PROC: 0BH17EZ Insertion of Endotracheal Airway into Trachea, Via Natural or Artificial Opening (ICD-10-PCS; 2021-04-29)
PROC: 5A12012 Performance of Cardiac Output, Single, Manual (ICD-10-PCS; 2021-04-29)
PROC: 02HV33Z Insertion of Infusion Device into Superior Vena Cava, Percutaneous Approach (ICD-10-PCS; 2021-04-29)
PROC: 5A1D70Z Performance of Urinary Filtration, Intermittent, Less than 6 Hours Per Day (ICD-10-PCS; 2021-04-29)
DX: A41.9 Sepsis, unspecified organism (principal); K31.82 Dieulafoy lesion (hemorrhagic) of stomach and duodenum; U07.1 COVID-19; J69.0 Pneumonitis due to inhalation of food and vomit; R65.21 Severe sepsis with septic shock; K72.00 Acute and subacute hepatic failure without coma; J95.822 Acute and chronic postprocedural respiratory failure; D62 Acute posthemorrhagic anemia; E87.2 Acidosis; N17.9 Acute kidney failure, unspecified; N39.0 Urinary tract infection, site not specified; I69.354 Hemiplegia and hemiparesis following cerebral infarction affecting left non-dominant side; E66.2 Morbid (severe) obesity with alveolar hypoventilation; L03.313 Cellulitis of chest wall; E87.0 Hyperosmolality and hypernatremia; Z68.41 Body mass index [BMI] 40.0-44.9, adult; E11.22 Type 2 diabetes mellitus with diabetic chronic kidney disease; I12.9 Hypertensive chronic kidney disease with stage 1 through stage 4 chronic kidney disease, or unspecified chronic kidney disease; N18.30 Chronic kidney disease, stage 3 unspecified; E78.5 Hyperlipidemia, unspecified; N40.0 Benign prostatic hyperplasia without lower urinary tract symptoms; I25.10 Atherosclerotic heart disease of native coronary artery without angina pectoris; E87.5 Hyperkalemia; R57.1 Hypovolemic shock; F03.90 Unspecified dementia, unspecified severity, without behavioral disturbance, psychotic disturbance, mood disturbance, and anxiety; R57.8 Other shock; E83.51 Hypocalcemia; E11.65 Type 2 diabetes mellitus with hyperglycemia; I46.9 Cardiac arrest, cause unspecified; K29.70 Gastritis, unspecified, without bleeding
CPT/HCPCS: 31500; 36415; 36569; 36600; 43239; 51700; 71045; 74174; 78278; 80048; 80053; 81001; 82150; 82607; 82728; 82746; 82805; 82948; 83036; 83540; 83605; 83735; 83880; 84100; 84132; 84134; 84443; 84466; 84478; 84484; 85002; 85025; 85045; 85384; 85610; 85730; 86705; 86706; 86850; 86900; 86920; 87040; 87086; 87340; 88304; 88305; 92950; 93005; 93970; 94003; 94640; 94664; 94799; 96372; 99285; A9512; J0171; J0330; J0360; J0692; J1100; J1610; J1756; J1815; J1817; J1940; J2001; J2150; J2250; J2270; J2353; J2370; J2405; J2765; J3430; J7030; J7050; P9016; P9017; P9047; Q9967; U0002